=== PATIENT | female | born 1970 | race Caucasian/White ===

== ENCOUNTER 2018-11-02 15:08 | Emergency (ER) | payer MEDICARE, OTHER ==
[~2018-11-02] VITALS: Ht 162.6 cm; Wt 72.7 kg
[2018-11-02] MEDS ORDERED: ACETAMINOPHEN 500 MG TABLET PO ONE (16:15)
[2018-11-02 17:40] VITALS: BP 121/80
== END 2018-11-02 18:14 | disposition home or self-care (01) ==
LOC: EMS 15:10
DX: S00.33XA Contusion of nose, initial encounter (principal); F17.210 Nicotine dependence, cigarettes, uncomplicated; Z98.51 Tubal ligation status; Z59.0 Homelessness; Y04.8XXA Assault by other bodily force, initial encounter; Y93.89 Activity, other specified; Y92.89 Other specified places as the place of occurrence of the external cause; Y99.8 Other external cause status
CPT/HCPCS: 70160

== ENCOUNTER 2020-01-07 11:59 | Emergency (ER) | payer MEDICARE, OTHER ==
[~2020-01-07] VITALS: Ht 162.6 cm; Wt 81.8 kg
[2020-01-07] MEDS ORDERED: IBUPROFEN 400 MG TABLET PO ONE (12:45)
[2020-01-07 14:59] VITALS: BP 120/73
== END 2020-01-07 15:00 | disposition home or self-care (01) ==
LOC: EMS 13:52
DX: Z03.818 Encounter for observation for suspected exposure to other biological agents ruled out (principal); M25.562 Pain in left knee; F17.210 Nicotine dependence, cigarettes, uncomplicated
CPT/HCPCS: 73562; 99284; U0003; Z7502; Z7610